=== PATIENT | female | born 1960 | race Hispanic/Latino ===

== ENCOUNTER 2016-09-09 15:03 | Outpatient (CLI) | payer OTHER | END 2016-09-09 15:04 | disposition home or self-care (01) | LOC: LABHHL 15:03 | PROVIDERS: ATTEND Surgery | DX: N63 Unspecified lump in breast (principal) | CPT/HCPCS: 88305; 88361 ==

== ENCOUNTER 2016-09-19 13:18 | Outpatient (CLI) | payer OTHER ==
--- NOTE | 2016-09-25 09:23 | Magnetic Resonance Report ---
BILATERAL BREAST MRI WITHOUT AND WITH CONTRAST: 09/19/16 13:18:00 CLINICAL: Newly diagnosed left breast cancer. Status post needle biopsy of a left breast mass at 3 o'clock 4 cm from the nipple on 05/12/16 with pathologic diagnosis of invasive ductal carcinoma, [place] grade II/III. ER/WI positive and HER-2 negative. COMPARISON:07/23/16 bilateral mammogram and left mammograms from 08/28/16 and 09/09/16. TECHNIQUE: Axial 1.0-mm T1 without, axial high resolution 2.0-mm T2 and axial 1.0-mm dynamic Vibrant high-resolution postcontrast T1 fat saturation sequences on a 1.5 Alice magnet. The examination was performed with an 8 channel dedicated [employer] breast coil. Post processing with CAD and subtraction was performed on an [employer] workstation. 20 cc of Multihance was injected without incident for the contrast portion of the exam. Consent was obtained prior to the administration of the contrast. FINDINGS: Left: Moderate background parenchyma enhancement. The known cancer is an irregular enhancing mass at 3 o'clock 6 cm from the nipple measuring 17.3 x 13.4 x 10.1 mm. It demonstrates heterogeneous enhancement with mixed kinetics, 196% peak enhancement and 13% type III washout. Lesion 2 is a suspicious lesion in the lower inner quadrant of the left breast located 4.4 cm from the nipple measuring 6.0 x 4.8 x 3.2 mm. It demonstrates heterogeneous enhancement with mixed kinetics, 142% peak enhancement and 24% by three washout. No other mass or suspicious enhancement of the left breast. No suspicious lymph nodes. Right: Moderate background parenchymal enhancement. Lesion 3 is an oval enhancing mass at 1 o'clock 4.8 cm from the nipple measures 9.8 x 5.7 x 5.0 mm. It demonstrates heterogeneous enhancement with mixed kinetics, 131% peak enhancement and 3% type III washout. Lesion 4 is a suspicious lesion in the upper-inner quadrant 5.3 cm from the nipple measures 8.3 x 4.6 x 2.9 mm. It demonstrates heterogeneous enhancement with mixed kinetics, 123% peak enhancement and 23% type III washout. No other mass or suspicious enhancement of the right breast. No suspicious lymph nodes. IMPRESSION: Known 1.7 cm left breast cancer with one additional suspicious lesion in the left breast and 2 suspicious lesions of the right breast. No suspicious lymph nodes. Recommend bilateral targeted breast ultrasound and ultrasound-guided needle biopsies these lesions are identified ultrasound. MRI guided biopsies would be feasible if corresponding lesions are not identified with ultrasound. RIGHT BI-RADS 4 -- Suspicious LEFT BI-RADS 6 -- Known Cancer
== END 2016-09-19 13:19 | disposition home or self-care (01) ==
LOC: SPVIMAG 13:18
PROVIDERS: ATTEND Surgery
DX: C50.412 Malignant neoplasm of upper-outer quadrant of left female breast (principal); Z80.3 Family history of malignant neoplasm of breast
CPT/HCPCS: 0159T; A9577; C8908; 77059

== ENCOUNTER 2016-10-03 14:03 | Outpatient (CLI) | payer OTHER ==
--- NOTE | 2016-10-03 15:55 | Ultrasound Report ---
BILATERAL BREAST ULTRASOUND: 10/03/16 14:03:00 CLINICAL: Newly diagnosed left breast cancer and additional suspicious lesions in each breast by recent MRI. COMPARISON: 09/19/16 MRI FINDINGS: Ultrasound of the right breast(including all four quadrants and the retroareolar area) was performed and demonstrated a benign cystic cluster at 3 o'clock 3 cm from nipple measuring 1.2 x 0.7 x 0.5 cm. No mass or cyst to correlate with MRI lesions at 1 o'clock 4.8 cm from the nipple and at 2 o'clock 5.3 cm from the nipple. Ultrasound of the left breast (including all four quadrants and the retroareolar area) was performed and demonstrated several benign cysts. A cystic cluster at 3 o'clock subareolar measures 1.0 x 0.9-0.6 cm. A benign cystic cluster at 6:30 o'clock 2 cm from the nipple measures 6 x 5 x 3 mm. A solid irregular hypoechoic mass at 2 o'clock 2 cm from the nipple corresponds to the known cancer. No lesion is identified in the lower inner quadrant to correlate with the MRI lesion. IMPRESSION: Known left breast cancer and bilateral benign cysts. No ultrasound lesions are identified to correlate with bilateral suspicious MRI lesions. Recommend bilateral MRI guided needle biopsy. BI-RADS 6--Known Cancer
== END 2016-10-03 14:04 | disposition home or self-care (01) ==
LOC: SPVWC 14:03
PROVIDERS: ATTEND Surgery
DX: C50.912 Malignant neoplasm of unspecified site of left female breast (principal); N63 Unspecified lump in breast; N60.01 Solitary cyst of right breast; N60.02 Solitary cyst of left breast

== ENCOUNTER 2016-10-15 12:37 | Outpatient (CLI) | payer OTHER ==
--- NOTE | 2016-10-15 15:40 | Mammography Report ---
LEFT DIGITAL DIAGNOSTIC MAMMOGRAM: 10/15/16 12:37:00 CLINICAL: For clip placement immediately status post MRI guided needle biopsy. COMPARISON:09/16/16 FINDINGS: A biopsy clip is now identified in the inner breast at 9 o'clock and correlates today's MRI biopsy site. The upper outer clip corresponds to the known cancer. IMPRESSION: Concordant clip placement status post MRI biopsy. BI-RADS CATEGORY: 6--Known Cancer
--- NOTE | 2016-10-15 16:23 | Magnetic Resonance Report ---
MRI GUIDED VACUUM ASSISTED CORE BIOPSY LEFT BREAST: 10/15/16 12:37:00 CLINICAL: Newly diagnosed left breast cancer and a suspicious second lesion at 9 o'clock. She also has 2 suspicious lesions in the right breast which are in the inner breast. I chose to biopsy left breast only since it is technically not feasible to biopsy bilateral inner breast lesions in the same sitting. COMPARISON: 09/19/16 MRI FINDINGS: Consent for the procedure was obtained. A Vibrant dynamic postcontrast series was performed on a 1.5 Alice magnet using an 8 channel Sentinelle dedicated breast coil. The previously described 6 mm lesion at 9 o'clock was localized and targeted using [employer] Sentinelle biopsy software. The skin was anesthetized with 1% lidocaine and a small dermatotomy was made. 2% lidocaine was administered for deeper anesthesia. 9-G biopsy was performed with an [employer] vacuum assisted device. Multiple cores were obtained. A clip was deployed after confirmation of adequate sampling. The probe was removed and hemostasis was achieved with minimal pressure to the site. A sterile dressing was applied. The patient tolerated the procedure well and there were no apparent complications. A two view mammogram demonstrated concordant clip placement. The patient left the department in good condition and was given instructions for would care and follow-up. IMPRESSION: Uncomplicated MRI biopsy with clip placement left breast. Recommend that she return for 2 site MRI guided biopsy of the right breast.
== END 2016-10-15 12:38 | disposition home or self-care (01) ==
LOC: SPVIMAG 12:37
PROVIDERS: ATTEND Surgery
DX: C50.412 Malignant neoplasm of upper-outer quadrant of left female breast (principal); N64.89 Other specified disorders of breast
CPT/HCPCS: 19085; A9577; G0206; 88305

== ENCOUNTER 2016-10-24 12:37 | Outpatient (CLI) | payer OTHER ==
--- NOTE | 2016-10-24 15:38 | Mammography Report ---
RIGHT DIGITAL DIAGNOSTIC MAMMOGRAM: 10/24/16 12:37:00 CLINICAL: For clip placement immediately status post right MRI breast biopsy. COMPARISON:07/23/16 mammogram and 09/19/16 MRI. FINDINGS: A biopsy clip is now identified in the upper inner quadrant correlating with the MRI biopsy site.The clip is concordant with the previously described lesion 4 on the MRI. IMPRESSION: Concordant clip placement status post MRI guided right breast biopsy. BI-RADS CATEGORY: 4--Suspicious Pathology pending.
--- NOTE | 2016-10-24 16:03 | Magnetic Resonance Report ---
MRI GUIDED VACUUM ASSISTED NEEDLE CORE BIOPSY RIGHT BREAST: 10/24/16 12:37:00 CLINICAL: Newly diagnosed left breast cancer and suspicious lesions in the right breast on MRI. COMPARISON: 10/15/16 FINDINGS: Consent for the procedure was obtained. A Vibrant dynamic postcontrast series was performed on a 1.5 Alice magnet using an 8 channel [employer]inelle dedicated breast coil. A single lesion was identified and correlates with what was described as lesion 4 on the previous MRI. The lesion was localized and targeted using [employer] Sentinelle biopsy software. The skin was anesthetized with 1% lidocaine and a small dermatotomy was made. 2% lidocaine was administered for deeper anesthesia. 9-G biopsy was performed with an [employer] vacuum assisted device. Imaging demonstrated satisfactory positioning of the probe and samples were obtained. A clip was deployed after confirmation of adequate sampling. The probe was removed and hemostasis was achieved with pressure to the site. A sterile dressing was applied. The patient tolerated the procedure well and there were no apparent complications. A two view mammogram demonstrated concordant clip placement. The patient left the department in good condition with instructions for would care and follow-up. IMPRESSION: Uncomplicated MRI biopsy with clip placement right breast.
== END 2016-10-24 12:38 | disposition home or self-care (01) ==
LOC: SPVIMAG 12:37
PROVIDERS: ATTEND Surgery
DX: C50.912 Malignant neoplasm of unspecified site of left female breast (principal); C50.911 Malignant neoplasm of unspecified site of right female breast
CPT/HCPCS: 19085; 88305; A9577; G0206

== ENCOUNTER 2016-11-13 06:37 | Day surgery (SDC) | payer OTHER ==
[2016-11-13] MEDS ORDERED: ANCEF/STERILE WATER 2 GM/20 ML IV NR (07:00)
[2016-11-13] MEDS ORDERED: NACL BACTERIOSTATIC INFILTRATI ONE (07:13)
[2016-11-13] MEDS ORDERED: XYLOCAINE 1% 20 mL ONE ×2 (07:14→08:06)
--- NOTE | 2016-11-13 07:33 | Anesthesia Day of Surgery ---
Anesthesia Day of Surgery - Day of Surgery Patient Examined: Yes Patient H&P Reviewed: Yes Patient is NPO: Yes
--- NOTE | 2016-11-13 07:33 | Anesthesia Consultation ---
Anesthesia Consult and Med Hx Date of service: 11/13/16 - Airway Anesthetic Teeth Evaluation: Good ROM Head & Neck: Adequate Mental/Hyoid Distance: Adequate Mallampati Class: Class II Intubation Access Assessment: Probably Good - Pulmonary Exam CTA: Yes - Cardiac Exam Cardiac Exam: RRR - Pre-Operative Health Status ASA Pre-Surgery Classification: ASA2 Proposed Anesthetic Plan: General - Pulmonary Hx Smoking: No Hx Sleep Apnea: No ([place] PRE SCREEN HIGH RISK) - Cardiovascular System Hx Hypertension: Yes (- 3 YRS AGO-RESOLVED , NO MEDS) - Central Nervous System Hx Back Pain: Yes - Hematic Hx Anemia: Yes (NOT RECENT) - Other Systems Hx Cancer: Yes (breast)
[2016-11-13] MEDS ORDERED: DIPRIVAN 10 MG/ML IV ONE (07:48)
[2016-11-13] MEDS ORDERED: SUBLIMAZE ONE (07:48)
[2016-11-13] MEDS ORDERED: XYLOCAINE MPF 2% ONE (07:48)
[2016-11-13] MEDS ORDERED: VERSED IV NR (08:00)
[2016-11-13] MEDS ORDERED: LACTATED RINGERS 1,000 ML IV SCH ×2 (08:00→10:00)
[2016-11-13] MEDS ORDERED: PEPCID PO NR (08:00)
[2016-11-13] MEDS ORDERED: MARCAINE 0.25% INFILTRATI ONE ×2 (08:06→09:34)
[2016-11-13] MEDS ORDERED: XYLOCAINE 1% 20 mL INFILTRATI ONE ×2 (09:00→09:34)
[2016-11-13] MEDS ORDERED: ZOFRAN ONE ×2 (09:23→13:12)
[2016-11-13] MEDS ORDERED: DECADRON ONE (09:23)
[2016-11-13] MEDS ORDERED: DILAUDID IV PRN (09:27)
[2016-11-13] MEDS ORDERED: ZOFRAN IV PRN ×3 (09:27→13:19)
[2016-11-13] MEDS ORDERED: ePHEDrine SULFATE ONE (09:29)
[2016-11-13] MEDS ORDERED: NACL P/F VIAL (10 ML) IV ONE (09:34)
[2016-11-13] MEDS ORDERED: WATER FOR IRRIG STERILE IR ONE (09:34)
[2016-11-13] MEDS ORDERED: METHYLENE BLUE IV ONE (09:34)
[2016-11-13] MEDS ORDERED: METHYLENE BLUE ONE (09:47)
[2016-11-13] MEDS ORDERED: NACL P/F VIAL (10 ML) 10 ML ONE (09:47)
--- NOTE | 2016-11-13 10:01 | Mammography Report ---
NEEDLE LOCALIZATION AND HOOKWIRE PLACEMENT LEFT BREAST:11/13/16 CLINICAL: Left breast cancer. COMPARISON: 10/24/16 mammogram FINDINGS: Using mammographic guidance, 1% lidocaine local anesthesia and sterile technique, a 5.0-cm Mariano hookwire was placed from a lateral approach to localize a biopsy clip.. Two views demonstrated satisfactory targeting. The hookwire was deployed and two additional orthogonal images were obtained. The patient tolerated the procedure well and there were no apparent complications. IMPRESSION: Uncomplicated hookwire placement left breast.
--- NOTE | 2016-11-13 11:34 | Mammography Report ---
SPECIMEN RADIOGRAPH LEFT BREAST: 11/13/16 CLINICAL: Surgical excision of a known cancer. FINDINGS: The targeted localizer clip and hookwire are identified within the specimen. IMPRESSION: Excision of the targeted lesion or.
[2016-11-13] MEDS ORDERED: DILAUDID ONE (12:32)
--- NOTE | 2016-11-13 12:42 | Short Stay Summary ---
Short Stay Documentation Date of service: 11/13/16 - History H&P: obtained from office - Allergies and Medications Current Medications: Allergies No Known Allergies Allergy (Verified 10/31/16 12:02) Home Medications Medication Instructions Recorded Confirmed Last Taken Type Naproxen Sodium [Aleve TAB] 220 mg PO Q8H PRN 10/31/16 11/13/16 11/05/16 History Omeprazole 40 mg PO DAILY 10/31/16 11/13/16 11/12/16 History HYDROcodone/APAP 5-325 [[place] 1 each PO Q6HR PRN #30 tablet 11/13/16 Unknown Rx 5/325] Active Medications Cefazolin Sodium (Ancef/Sterile Water 2 Gm/20 Ml) 2 gm IV PREOP NR Stop: 11/13/16 23:59 Famotidine (Pepcid) 20 mg PO PREOP NR Stop: 11/13/16 15:00 Last Admin: 11/13/16 08:47 Dose: 20 mg Hydromorphone HCl (Dilaudid) 0.5 mg IV Q10MIN PRN PRN Reason: Pain , Severe (7-10) Stop: 11/13/16 15:00 Lactated Ringer's (Lactated Ringers) 1,000 mls @ 100 mls/hr IV DIRECT EJ Last Admin: 11/13/16 08:48 Dose: 100 mls/hr Lactated Ringer's (Lactated Ringers) 1,000 mls @ 100 mls/hr IV DIRECT EJ Midazolam HCl (Versed) 2 mg IV PREOP NR Stop: 11/13/16 23:59 Last Admin: 11/13/16 08:53 Dose: 2 mg - Brief post op/procedure progress note Date of procedure: 11/13/16 Pre-op diagnosis: Left breast cancer of the upper outer quadrant Post-op diagnosis: same Procedure: Left needle localization partial mastectomy with SLNB Anesthesia: GETA Findings: Wire and clip present within radiograph specimen Surgeon: JOCE GARRIDO Estimated blood loss: minimal Pathology: list (left partial mastectomy and SLNB) Specimen disposition: to lab Condition: stable - Disposition Condition at discharge: Good Disposition: DC-[id number] TO HOME OR SELFCARE Short Stay Discharge Plan Activity: other (no heavy lifting) Diet: regular Wound: other (keep incision clean and dry; may shower in 24 hours; no baths, pools or lakes; do not rub or scrub incision) Follow up with: KOBY MCGOWAN MD [Primary Care Provider] - 7 Days JOCE GARRIDO MD [Staff Physician] - 7 Days Prescriptions: HYDROcodone/APAP 5-325 [[place] 5/325] 1 each PO Q6HR PRN #30 tablet PRN Reason: Pain
--- NOTE | 2016-11-13 12:44 | Operative Report ---
Operative Report Operative Report: Date of surgery: November 13, 2016 Preoperative diagnosis: Left breast cancer of the upper outer quadrant Postoperative diagnosis: Same Procedure: Complex left needle localization partial mastectomy and sentinel lymph node biopsy Surgeon: Edith Iniguez M.D. Anesthesia: Gen. Findings: 2 sentinel lymph nodes identified, radiograph specimen with clip and wire present. Specimens: [place] lymph node and left partial mastectomy Complications: None Estimated blood loss: Minimal Disposition: PACU in good condition Indications for operative procedure: This is a 56-year-old lady with newly diagnosed stage I left breast cancer of the upper outer quadrant. Recommendations were to proceed with a left partial mastectomy and sentinel lymph node biopsy. Patient wished to proceed with the above procedure. Procedure in detail: Radiology placed left wire to localize known cancer. The patient was taken to the operating room and was laid supine. Gen. anesthesia was administered. The left breast was prepped and draped in the normal sterile operative fashion. The nipple was injected with radioisotope. Timeout was performed. Gamma probe was inserted into the axilla with minimal counts identified. The nipple was injected with 1 mL of methylene blue dye mixed with 1 ml of saline. Gamma probe was inserted into the axilla after the breast was massaged for an additional 5 minutes. Increased counts were noted. A skin incision was made with a 15 blade knife in the axilla with dissection taken down to the subcutaneous tissues. The axillary fascia was opened. Gamma probe was inserted to the axilla. 2 SLNs were identified that were appropriate dissected free and sent to pathology for permanent section. Hemostasis was noted. Axillary cavity was irrigated and suctioned. The axillary fascia was approximated closed using interrupted 3-0 Vicryl and the skin closed using a running 4-0 Monocryl followed by skin affix. Attention was then taken towards the left breast. Ultrasound was used as well to identify the area of concern given known cancer not well seen on ultrasound. A lateral breast incision was made with a 15 blade knife and dissection taken down to the subcutaneous tissues. First began raising of the lateral flap with the removal of the wire from the skin taking down posterior to the pectoralis muscle. Then followed by raising of the superior flap, followed by the raising of the medial flap and inferior flap with dissection taken down to the pectoralis muscle. The partial mastecomty was removed from the pectoralis muscle with the aid of Bovie cautery. Radiograph specimen with clip and wire present. Breast tissue that was medial, anterior and caudal were also noted with some concerns with revised margins taken for permanent sectioning. These margins were appropriately marked as well and discussed with pathology as well. Hemostasis was obtained with the aid of the Bovie cautery. The axillary cavity and breast cavity were anesthetized with 1% lidocaine mixed with quarter percent Marcaine. Hemostasis was noted. Breast cavity was irrigated and suctioned. The breast tissue was mobilized posteriorly and approximated to ensure cosmesis. The breast tissue was approximated and closed using interrupted 3-0 Vicryl and skin brought together and closed using a running 4-0 Monocryl followed by skin affix. She tolerated surgery very well and was awakened from anesthesia without complications and transported to PACU in condition.
--- NOTE | 2016-11-13 13:47 | Post Anesthesia Evaluation ---
- Post Anesthesia Evaluation Patient Participated: Yes Airway Patent: Yes Stable Respiratory Function: Yes Nausea/Vomiting: No Temp > 96.8F: Yes Pain Manageable: Yes Adequeate Hydration: Yes Anesthesia Complications: No
[2016-11-13] MEDS ORDERED: TRANSDERM-SCOP TD SCH (14:06)
[2016-11-13] MEDS ORDERED: REGLAN IV SCH (15:11)
[2016-11-13 17:51] VITALS: BP 128/63
== END 2016-11-13 15:45 | disposition home or self-care (01) ==
LOC: OR 06:37
PROVIDERS: ATTEND Surgery
DX: C50.412 Malignant neoplasm of upper-outer quadrant of left female breast (principal); I10 Essential (primary) hypertension; Z98.890 Other specified postprocedural states; Z80.3 Family history of malignant neoplasm of breast
CPT/HCPCS: 19281; 19301; 38525; 38792; 76098; 78800; 88305; 88307; 88309; 88341; 88342; A9541; J0690; J1100; J1170; J2250; J2405; J2704; J2765; J3010; J7120; Q9968; 88333

== ENCOUNTER 2016-12-21 20:54 | Emergency (ER) | payer OTHER ==
--- NOTE | 2016-12-21 22:57 | XRay Report ---
FINAL REPORT PROCEDURE: XR CHEST ROUTINE 2V TECHNIQUE: PA and lateral chest radiographs were obtained. CPT 80249 HISTORY: shortness of breath COMPARISON: No prior studies are available for comparison. FINDINGS: Heart: Normal. Mediastinum/Vessels: Normal. Lungs/Pleural space: Normal. Bony thorax: No acute osseous abnormality. Other: IMPRESSION: Normal examination.
[2016-12-22 04:10] LABS: Hematocrit 41.9 % (30.3-42.9); Hemoglobin 14.3 gm/dl (10.1-14.3); Mean Corpuscular HGB Conc 34 % (30-34); Mean Corpuscular Hemoglobin 30 pg (28-32); Mean Corpuscular Volume 87 fl (79-97); Red Blood Count 4.82 M/mm3 (3.65-5.03); Red Cell Distribution Width 13.5 % (13.2-15.2); White Blood Count 9.5 K/mm3 (4.5-11.0)
[2016-12-22 04:24] LABS: Anion Gap 21 mmol/L; Blood Urea Nitrogen 23 mg/dL (7-17); Calcium 9.4 mg/dL (8.4-10.2); Carbon Dioxide 24 mmol/L (22-30); Chloride 96.8 mmol/L (98-107); Glucose 99 mg/dL (65-100); Potassium 5.8 mmol/L (3.6-5.0); Sodium 136 mmol/L (137-145)
[2016-12-22 05:13] LABS: Anisocytosis 1+; Basophils % (Manual) 0 % (0.0-1.8); Blastocytes % (Manual) 0 %; Diff Status Complete; Platelet Clumps Rare; Platelet Estimate Consistent w Auto
[2016-12-22 05:14] LABS: Platelet Count 186 K/mm3 (140-440)
--- NOTE | 2016-12-22 07:04 | Emergency Department Report ---
HPI - General Chief Complaint: Upper Respiratory Infection Time Seen by Provider: 12/22/16 06:26 - HPI HPI: Room 4 The patient is a 56-year-old female presenting with chief complaint of URI. The patient states approximately 1.5 weeks ago she developed a cough sore throat and bilateral ear pain. The patient states she went to an urgent care facility and was given a prescription for "ear drops", ibuprofen and cough medication. The patient states her symptoms do not improve when she returns to the urgent care facility 6 days ago and was started on amoxicillin. The patient says she had a flu swab done at that time and was negative. The patient states her symptoms have not improved. Patient denies fever but admits to chills and rhinorrhea. Patient denies sick contacts Location: [see above] Duration: 1.5 weeks Quality: Soreness Severity: Moderate Modifying factors: [see above] Context: [see above] Mode of transportation: Unknown ED Past Medical Hx - Past Medical History Hx Hypertension: Yes (- 3 YRS AGO-RESOLVED , NO MEDS) Hx GERD: Yes Hx Arthritis: Yes Additional medical history: Breast cancer 10/2016 - Surgical History Past Surgical History?: Yes Additional Surgical History: T&A. 1983 &tubal. 1984-DNC. 1992- hysterectomy. 2001-ear surgeries - Family History Family history: no significant - Social History Smoking Status: Never Smoker Substance Use Type: Alcohol (rarely) - Medications Home Medications: Home Medications Medication Instructions Recorded Confirmed Last Taken Type Omeprazole 20 mg PO DAILY 10/31/16 12/22/16 11/12/16 History Amoxicillin 500 mg PO TID 12/22/16 12/22/16 Unknown History Azithromycin [Zithromax Z-DALLAS] 0 mg PO DAILY #6 tab 12/22/16 Unknown Rx Benzonatate [Tessalon Perles] 100 mg PO TID PRN 12/22/16 12/22/16 Unknown History Ibuprofen [Motrin] 600 mg PO BID PRN 12/22/16 12/22/16 Unknown History Neomycin/Polymyxin B Sulf/Hc 3 drop AU TID 12/22/16 12/22/16 Unknown History [NEOMY/POLY/HC 3.5mg/[id number]/10mg OTIC] traMADol [Ultram] 50 mg PO Q6HR PRN #14 tablet 12/22/16 Unknown Rx ED Review of Systems ROS: Stated complaint: "ONGOING EAR/THROAT PAIN Other details as noted in HPI Comment: All other systems reviewed and negative Constitutional: chills Eyes: denies: eye pain, eye discharge, vision change ENT: ear pain, throat pain, other (rhinorrhea) Respiratory: cough Cardiovascular: denies: chest pain, palpitations Endocrine: no symptoms reported Gastrointestinal: denies: abdominal pain, nausea, diarrhea Genitourinary: denies: urgency, dysuria, discharge Musculoskeletal: denies: back pain, joint swelling, arthralgia Skin: denies: rash, lesions Neurological: denies: headache, weakness, paresthesias Psychiatric: denies: anxiety, depression Hematological/Lymphatic: denies: easy bleeding, easy bruising Physical Exam - Physical Exam Vital Signs: Vital Signs 12/21/16 12/22/16 21:50 05:27 Temperature 99.0 F 98 F Pulse Rate 85 73 Respiratory 16 18 Rate Blood Pressure 178/77 148/56 [Right] O2 Sat by Pulse 95 99 Oximetry Physical Exam: GENERAL: The patient is well-developed well-nourished female lying on stretcher not appearing to be in acute distress. [] HEENT: Normocephalic. Atraumatic. Extraocular motions are intact. Patient has moist mucous membranes. Oropharynx clear. Left TM is opaque but without erythema or air fluid level. Right TM obscured by cerumen NECK: Supple. No meningitic signs are noted. Trachea midline CHEST/LUNGS: Clear to auscultation. There is no respiratory distress noted. HEART/CARDIOVASCULAR: Regular. There is no tachycardia. There is no gallop rub or murmur. ABDOMEN: Abdomen is soft, nontender. Patient has normal bowel sounds. There is no abdominal distention. SKIN: There is no rash. There is no diaphoresis. NEURO: The patient is awake, alert, and oriented. The patient is cooperative. The patient has normal speech MUSCULOSKELETAL: There is no evidence of acute injury. ED Course Vital Signs 12/21/16 12/22/16 21:50 05:27 Temperature 99.0 F 98 F Pulse Rate 85 73 Respiratory 16 18 Rate Blood Pressure 178/77 148/56 [Right] O2 Sat by Pulse 95 99 Oximetry ED Medical Decision Making - Lab Data Result diagrams: 12/22/16 02:14 10/01/17 06:36 Laboratory Tests 12/22/16 12/22/16 12/22/16 02:14 02:14 06:36 WBC 9.5 RBC 4.82 Hgb 14.3 Hct 41.9 MCV 87 MCH 30 MCHC 34 RDW 13.5 Plt Count 186 Lymph % (Auto) Not Reportable [place] % (Auto) Not Reportable Eos % (Auto) Not Reportable Baso % (Auto) Not Reportable Lymph # Not Reportable [place] # Not Reportable Eos # Not Reportable Baso # Not Reportable Add Manual Diff Complete Total Counted 100 Seg Neuts % (Manual) 59.0 Band Neutrophils % 7.0 Lymphocytes % (Manual) 22.0 Reactive Lymphs % (Man) 0 Monocytes % (Manual) 8.0 H Eosinophils % (Manual) 4.0 Basophils % (Manual) 0 Metamyelocytes % 0 Myelocytes % 0 Promyelocytes % 0 Blast Cells % 0 Nucleated RBC % Not Reportable Seg Neutrophils # Not Reportable Seg Neutrophils # Man 5.6 Band Neutrophils # 0.7 Lymphocytes # (Manual) 2.1 Abs React Lymphs (Man) 0.0 Monocytes # (Manual) 0.8 Eosinophils # (Manual) 0.4 Basophils # (Manual) 0.0 Metamyelocytes # 0.0 Myelocytes # 0.0 Promyelocytes # 0.0 Blast Cells # 0.0 WBC Morphology Not Reportable Hypersegmented Neuts Not Reportable Hyposegmented Neuts Not Reportable Hypogranular Neuts Not Reportable Smudge Cells Not Reportable Toxic Granulation Not Reportable Toxic Vacuolation Not Reportable Dohle Bodies Not Reportable Pelger-Huet Anomaly Not Reportable Krys Rods Not Reportable Platelet Estimate Consistent w auto Clumped Platelets Rare Plt Clumps, EDTA Not Reportable Large Platelets Not Reportable Giant Platelets Not Reportable Platelet Satelliting Not Reportable Plt Morphology Comment Not Reportable RBC Morphology Not Reportable Dimorphic RBCs Not Reportable Polychromasia Not Reportable Hypochromasia Not Reportable Poikilocytosis Not Reportable Anisocytosis 1+ Microcytosis Not Reportable Macrocytosis Not Reportable Spherocytes Not Reportable Pappenheimer Bodies Not Reportable Sickle Cells Not Reportable Target Cells Not Reportable Tear Drop Cells Not Reportable Ovalocytes Not Reportable Helmet Cells Not Reportable [place] Bodies Not Reportable [place] Rings Not Reportable Raquel Cells Not Reportable Bite Cells Not Reportable Crenated Cell Not Reportable Elliptocytes Not Reportable Acanthocytes (Spur) Not Reportable Rouleaux Not Reportable Hemoglobin C Crystals Not Reportable Schistocytes Not Reportable Malaria parasites Not Reportable Bryan Bodies Not Reportable Hem Pathologist Commnt No Sodium 136 L Potassium 5.8 H 4.9 Chloride 96.8 L Carbon Dioxide 24 Anion Gap 21 BUN 23 H Creatinine 0.5 L Estimated GFR > 60 BUN/Creatinine Ratio 46.00 Glucose 99 Calcium 9.4 - Radiology Data Radiology results: image reviewed (chest x-ray, lateral soft tissue neck x-ray) interpreted by me: Chest x-ray-no focal infiltrates, no pneumothorax Lateral soft tissue neck x-ray-no evidence of epiglottitis, no prevertebral swelling - Differential Diagnosis URI, retropharyngeal abscess, epiglottitis, otitis media Critical care attestation.: If time is entered above; I have spent that time in minutes in the direct care of this critically ill patient, excluding procedure time. ED Disposition Clinical Impression: URI (upper respiratory infection) Disposition: DC-01 TO HOME OR SELFCARE Is pt being admited?: No Does the pt Need Aspirin: No Condition: Stable Instructions: Upper Respiratory Infection (ED) Additional Instructions: Return to the emergency department immediately should you develop worsening symptoms, fever, inability to tolerate food or liquid or any other concerns. Prescriptions: Azithromycin [Zithromax Z-DALLAS] 0 mg PO DAILY #6 tab traMADol [Ultram] 50 mg PO Q6HR PRN #14 tablet PRN Reason: Pain Referrals: PRIMARY CARE, [Primary Care Provider] - 3-5 Days PATRICK FARIAS MD [Staff Physician] - 3-5 Days (Dr. Farias is an ear nose and throat doctor. Please follow up with her for further evaluation) Time of Disposition: 07:14
[2016-12-22 07:38] VITALS: BP 141/65
--- NOTE | 2016-12-22 09:27 | XRay Report ---
AP AND LATERAL SOFT TISSUES OF THE NECK: History: Sore throat, pain. The contour of the upper airway appears within normal limits. The epiglottis is not enlarged. No prevertebral soft tissue swelling is apparent. No mass density or foreign body is evident. IMPRESSION: Normal study.
== END 2016-12-22 07:38 | disposition home or self-care (01) ==
LOC: ED 20:54
DX: J06.9 Acute upper respiratory infection, unspecified (principal); I10 Essential (primary) hypertension; K21.9 Gastro-esophageal reflux disease without esophagitis; M19.90 Unspecified osteoarthritis, unspecified site
CPT/HCPCS: 36415; 70360; 71020; 80048; 84132; 85007; 85025; 99284

== ENCOUNTER 2017-05-06 10:56 | Outpatient (CLI) | payer OTHER ==
--- NOTE | 2017-05-06 11:50 | Mammography Report ---
LEFT DIGITAL DIAGNOSTIC MAMMOGRAM : 05/06/17 10:56:00 CLINICAL: Left breast cancer status post radiation therapy and chemotherapy. COMPARISON:10/15/16 FINDINGS: The breast is heterogeneously dense, which may obscure small masses.No mass, architectural distortion or suspicious calcifications. Retroareolar biopsy clip and surgical clips in the axilla. Moderate skin thickening of the breast is new compared to the prior exam. IMPRESSION: No mammographic evidence of malignancy.Benign posttreatment changes. BI-RADS CATEGORY: 2 - - Benign RECOMMENDATION: One year followup mammogram. ACR BI-RADS MAMMOGRAPHIC CODES: 0 = Needs additional imaging evaluation; 1 = Negative; 2 = Benign; 3 = Probably benign; 4 = Suspicious; 5 = Malignant; 6 = Known biopsy-proven malignancy COMMENT: 1. Dense breast tissue, i.e., adenosis, fibrocystic changes, etc., may obscure an underlying neoplasm. 2. Approximately 10% of cancers are not detected with mammography. 3. A negative mammography report should not delay biopsy if a clinically suspicious mass is present. COMMENT: Patient follow-up letters are generated by our [employer] application.
== END 2017-05-06 10:57 | disposition home or self-care (01) ==
LOC: SPVWC 10:56
PROVIDERS: ATTEND Surgery
DX: R92.8 Other abnormal and inconclusive findings on diagnostic imaging of breast (principal)

== ENCOUNTER 2017-07-03 12:34 | Outpatient (CLI) | payer OTHER ==
--- NOTE | 2017-07-03 13:51 | Mammography Report ---
BONE DENSITY STUDY: Breast malignancy; osteoporosis screening. DEFINITIONS: BMD = Bone Mineral Density T-score = BMD related to mean peak bone mass of young adult (mean expressed in Standard Deviation) Z-score = Age matched BMD expressed in SD World Health Organization (WHO) Diagnostic Criteria Normal T-score > -1 SD Osteopenia T-score between -1 and -2.4 SD Osteoporosis T-score -2.5 SD or below FINDINGS: The weighted average BMD of lumbar spine L1-L4 is 1.079 with a T-score of 0.3. The weighted average BMD of the left hip is 0.984 with a T-score of 0.3. IMPRESSION: The patient's average T-score is diagnostic for normal bone density and low relative risk for fracture. NOTE: BMD is not the only risk factor for fracture; also consider factors such as the patient's age, risk of falling, previous osteoporotic fracture, family history of osteoporotic fractures, current smoker, and low body weight. Jesus's triangle is a region of interest in femur, predominantly of trabecular bone. It is not a true anatomic site, and [facility] does not recommend its use clinically.
== END 2017-07-03 12:35 | disposition home or self-care (01) ==
LOC: SPVWC 12:34
DX: Z13.820 Encounter for screening for osteoporosis (principal); C50.912 Malignant neoplasm of unspecified site of left female breast; Z79.811 Long term (current) use of aromatase inhibitors
CPT/HCPCS: 77080

== ENCOUNTER 2017-08-19 10:46 | Outpatient (CLI) | payer OTHER, MEDICAID ==
--- NOTE | 2017-08-20 12:52 | Mammography Report ---
BILATERAL DIGITAL SCREENING MAMMOGRAM WITH CAD: 08/19/17 10:46:00 CLINICAL: Routine screening.Breast cancer survivor status post left partial mastectomy, radiation therapy and chemotherapy. The surgical excision was done on 11/13/16. Status post benign MRI biopsies of the right breast. COMPARISON:05/06/17 left mammogram and 07/23/16 bilateral mammogram. FINDINGS: The breasts are heterogeneously dense, which may obscure small masses. The left breast is smaller than the right and is more dense than the right. Moderate skin thickening of the left breast. Left upper outer postsurgical scar. Bilateral biopsy clips. No mass, suspicious architectural distortion or suspicious calcifications. IMPRESSION: No mammographic evidence of malignancy. Benign posttreatment changes. BI-RADS CATEGORY: 2 -- Benign RECOMMENDATION: Routine mammographic screening in one year. COMMENT: Patient follow-up letters are generated via our [employer] application.
== END 2017-08-19 10:47 | disposition home or self-care (01) ==
LOC: SPVWC 10:46
PROVIDERS: ATTEND Surgery
DX: Z12.31 Encounter for screening mammogram for malignant neoplasm of breast (principal); Z85.3 Personal history of malignant neoplasm of breast; Z90.12 Acquired absence of left breast and nipple
CPT/HCPCS: 77067

== ENCOUNTER 2018-01-14 12:17 | Outpatient (CLI) | payer OTHER ==
--- NOTE | 2018-01-15 07:44 | XRay Report ---
BILATERAL WRIST RADIOGRAPHS INDICATION: Fall onto right wrist. COMPARISON: None similar. FINDINGS: AP, lateral and oblique bilateral wrist radiographs demonstrate intact carpal rows and also remainder imaged bones. Slight osteoarthritic changes maybe developing. Possible bony demineralization. Grossly unremarkable soft tissues. CONCLUSION: No acute radiographic abnormality, as described. Thank you for the opportunity to participate in this patient's care.
--- NOTE | 2018-01-15 07:45 | XRay Report ---
BILATERAL HAND RADIOGRAPHS INDICATION: Fall onto right wrist. COMPARISON: None similar. FINDINGS: AP, lateral and oblique bilateral hand radiographs suggest osteopenia/osteoporosis. Intact bony articulation. No focal suspicious erosions. Mild age-appropriate osteoarthrosis as involving few interphalangeal joints and the wrists. No radiopaque foreign body. CONCLUSION: No acute radiographic abnormality with mild age-appropriate bony degenerative changes. Thank you for the opportunity to participate in this patient's care.
== END 2018-01-14 12:18 | disposition home or self-care (01) ==
LOC: SPVIMAG 12:17
DX: M19.032 Primary osteoarthritis, left wrist (principal); M19.031 Primary osteoarthritis, right wrist; I10 Essential (primary) hypertension; E78.00 Pure hypercholesterolemia, unspecified; K21.9 Gastro-esophageal reflux disease without esophagitis; Z90.710 Acquired absence of both cervix and uterus; Z85.3 Personal history of malignant neoplasm of breast; W19.XXXA Unspecified fall, initial encounter; Y93.89 Activity, other specified; Y92.89 Other specified places as the place of occurrence of the external cause; Y99.8 Other external cause status; Z90.89 Acquired absence of other organs

== ENCOUNTER 2018-08-25 09:34 | Outpatient (CLI) | payer OTHER ==
--- NOTE | 2018-08-25 10:35 | Mammography Report ---
BILATERAL DIGITAL SCREENING MAMMOGRAM WITH CAD: 08/25/18 09:34:00 CLINICAL: Routine screening.Breast cancer survivor status post left partial mastectomy , radiation therapy and chemotherapy. Previous right benign MRI biopsies.. COMPARISON:08/19/17 FINDINGS: The breasts are heterogeneously dense, which may obscure small masses. Stable left benign postsurgical scar. Bilateral biopsy clips. No mass, suspicious architectural distortion or suspicious calcifications. IMPRESSION: No mammographic evidence of malignancy. BI-RADS CATEGORY: 2 -- Benign RECOMMENDATION: Routine mammographic screening in one year. COMMENT: Patient follow-up letters are generated via our [employer] application.
== END 2018-08-25 09:35 | disposition home or self-care (01) ==
LOC: SPVWC 09:34
PROVIDERS: ATTEND Surgery
DX: Z12.31 Encounter for screening mammogram for malignant neoplasm of breast (principal); E78.00 Pure hypercholesterolemia, unspecified; I10 Essential (primary) hypertension; K21.9 Gastro-esophageal reflux disease without esophagitis; Z90.89 Acquired absence of other organs; Z90.710 Acquired absence of both cervix and uterus
CPT/HCPCS: 77067